=== PATIENT | male | born 1990 | race Two or more races ===

== ENCOUNTER 2017-02-19 08:59 | Emergency (ER) | payer MEDICAID ==
[~2017-02-19] VITALS: Ht 167.6 cm; Wt 56.2 kg
[2017-02-19 09:20] VITALS: BP 112/70
[2017-02-19] MEDS ORDERED: KETOROLAC TROMETH 60MG/2ML VIAL IM ONE (09:45)
[2017-02-19 09:48] LABS: Basophils # (auto) 0 uL; Basophils % (auto) 0.7 % (0.0-2.0); Eosinophils # (auto) 0.2 uL; Eosinophils % (auto) 3.5 % (0.0-7.0); Hematocrit 46.7 % (41.0-53.0); Hemoglobin 16.1 g/dL (13.5-17.5); Lymphocytes # (auto) 1.5 uL; Mean Corpuscular Hgb Conc. 34.4 g/dL (32.0-36.0); Mean Corpuscular Volume 87.4 fL (80.0-100.0); Monocytes # (auto) 0.5 uL; Monocytes % (auto) 9.6 % (0.0-12.0); Neutrophils % (auto) 57.2 % (37.0-80.0); Nucleated Red Blood Cells % 0.3 %; Platelet Count (auto) 235 10^3/uL (140-450); Red Blood Cells 5.35 10^6/uL (4.5-5.90); Red Cell Distribution Width 13.7 % (11.8-14.3); White Blood Cell 5.3 10^3/uL (4.4-10.8)
[2017-02-19 10:02] LABS: Albumin 4.5 g/dL (3.4-5.0); BUN/Creatinine Ratio 14.2; Bilirubin, Total 0.8 mg/dL (0.2-1.0); Potassium 3.5 mmol/L (3.5-5.1); Total Protein 8.1 g/dL (6.4-8.2)
[2017-02-19 10:02] LABS: Urine Specific Gravity 1.028 (1.001-1.035)
[2017-02-19 10:03] LABS: Urine Blood 2+ /uL (Negative)
[2017-02-19 10:11] LABS: Urine Bacteria None Seen /hpf (None Seen); Urine WBC 1 /hpf (0 - 3)
== END 2017-02-19 10:48 | disposition home or self-care (01) ==
LOC: ER 09:12
DX: N13.2 Hydronephrosis with renal and ureteral calculous obstruction (principal)
CPT/HCPCS: 36415; 74176; 80053; 81001; 85025; 96372; 99285; J1885